=== PATIENT | female | born 1970 | race Caucasian/White ===

== ENCOUNTER 2018-12-04 09:53 | Outpatient (CLI) | payer BC | END 2018-12-04 09:54 | disposition home or self-care (01) | LOC: CTENTCT 09:53 | PROVIDERS: ATTEND Specialist | DX: J34.2 Deviated nasal septum (principal) | CPT/HCPCS: 70486 ==

== ENCOUNTER 2018-12-17 07:30 | Outpatient (CLI) | payer BC ==
--- NOTE | 2018-12-17 09:33 | CT ---
CT NECK SOFT TISSUES WITH CONTRAST: 12/17/2018 HISTORY: A 48-year-old female with ICD-10 R22.1, neck fullness. FINDINGS: There are multiple shotty cervical lymph nodes, less than 1 cm in size each, at multiple levels in th e neck, bilateral, mostly levels 1A, 1B and 2. The appearance is similar to that of previous CT of . Otherwise no solid or cystic mass is identified. The carotid, parotid, parapharyngeal, astrid vertebral, retropharyngeal, visceral, submandibular, building construction supervisor, sublingual and posterior cervical sp aces are unremarkable. The larynx is normal. The thyroid gland is somewhat small. No major interval c hange compared to 12/17/2013, overall. No destructive osseous lesion. Prominent degenerative changes at C1-C2. The bilateral tympanomastoid cavities and the bilateral maxillary sinuses are grossly clear . IMPRESSION: 1. Prominent degenerative changes at the atlanto-odontoid junction. 2. Scattered shotty cervical lymph nodes. 3. Otherwise negative. POS: CET
[2018-12-17] MEDS ORDERED: ISOVUE-370 76%-LOCM 1 ML ONE (09:59)
== END 2018-12-17 07:31 | disposition home or self-care (01) ==
LOC: BICCT 07:30
PROVIDERS: ATTEND Specialist
DX: R22.1 Localized swelling, mass and lump, neck (principal); M47.812 Spondylosis without myelopathy or radiculopathy, cervical region; I89.8 Other specified noninfective disorders of lymphatic vessels and lymph nodes
CPT/HCPCS: 70491; Q9966

== ENCOUNTER 2019-04-17 06:56 | Outpatient (CLI) | payer BC ==
--- NOTE | 2019-04-17 07:42 | ULT ---
GALLBLADDER ULTRASOUND: HISTORY: Right upper quadrant abdominal pain FINDINGS: The liver demonstrates increased echogenicity without focal mass or intrahepatic biliary ductal dilat ation. No gallstones, gallbladder wall thickening or pericholecystic fluid are seen. The right kidney and pancreas are normal. The common duct [id number] in diameter. No free fluid is seen in the De Leon's pouch. IMPRESSION: 1. Fatty liver 2. No evidence cholelithiasis.
== END 2019-04-17 06:57 | disposition home or self-care (01) ==
LOC: BICULT 06:56
PROVIDERS: ATTEND Family Medicine
DX: R10.11 Right upper quadrant pain (principal); K76.0 Fatty (change of) liver, not elsewhere classified
CPT/HCPCS: 76705

== ENCOUNTER 2020-01-21 12:25 | Outpatient (CLI) | payer BC ==
--- NOTE | 2020-01-21 13:05 | ULT ---
EXAM: US Soft Tissue Abd Wall DATE: 01/21/2020 12:00 AM INDICATION: Multiple palpable areas near the sternum and bilateral rib cage concern for possible lym phadenopathy COMPARISON: None. FINDING: Multiple grayscale sonographic images were obtained of the palpable regions of interest brent ng the anterior aspect of the rib cage. No suspicious sonographic abnormality is demonstrated. IMPRESSION:No suspicious sonographic abnormalities seen within the regions of palpable interest of th e anterior chest wall.
== END 2020-01-21 12:26 | disposition home or self-care (01) ==
LOC: BICULT 12:25
PROVIDERS: ATTEND Family Medicine
DX: R59.1 Generalized enlarged lymph nodes (principal)
CPT/HCPCS: 76705

== ENCOUNTER 2022-08-25 08:18 | Outpatient (CLI) | payer BC | END 2022-08-25 08:19 | disposition home or self-care (01) | LOC: BICCT 08:18 | PROVIDERS: ATTEND Family Medicine | DX: R59.0 Localized enlarged lymph nodes (principal) | CPT/HCPCS: 71260; 82565 ==

== ENCOUNTER 2022-11-16 08:58 | Outpatient (CLI) | payer BC ==
[2022-11-16 10:44] LABS: Hematocrit 44.6 % (34.9-44.5)
[2022-11-16 11:01] LABS: BHCG - Serum Negative (NEGATIVE); Pregs Control Background? CLEAR/WHITE (CLR/WHITE); Pregs Control Bar Appear? YES (CONTROL BAR)
[2022-11-16 11:07] LABS: Anion Gap 16 mmol/L (10-20); BUN (Urea Nitrogen) 13 mg/dL (9.8-20.1); Calc. Creatinine Clearance 0 mL/min (70-130); Calcium 9.5 mg/dL (7.8-10.44); Carbon Dioxide 24 mmol/L (22-29); Chloride 102 mmol/L (98-107); Estimated GFR 71; Glucose 151 mg/dL (70-105); Potassium 4.8 mmol/L (3.5-5.1); Sodium 137 mmol/L (136-145)
== END 2022-11-16 08:59 | disposition home or self-care (01) ==
LOC: LABBT 08:58
PROVIDERS: ATTEND Student in an Organized Health Care Education/Training Program
DX: Z01.818 Encounter for other preprocedural examination (principal); J34.2 Deviated nasal septum; J34.3 Hypertrophy of nasal turbinates; R09.81 Nasal congestion; R22.1 Localized swelling, mass and lump, neck
CPT/HCPCS: 80048; 84703; 85014; 93005; 93010

== ENCOUNTER 2022-11-21 07:12 | Day surgery (SDC) | payer BC ==
[2022-11-21] MEDS ORDERED: Oxymetazoline HCl 0.05% (30 ML BOT) ONE ×2 (08:26→08:42)
[2022-11-21] MEDS ORDERED: EPINEPHrine 1 MG/ML AMP ONE (08:42)
[2022-11-21] MEDS ORDERED: Lidocaine 1% (PF) 30 ML VIAL ONE (08:42)
[2022-11-21] MEDS ORDERED: Bacitracin Zinc Ointment 30 gm TUBE ONE (08:42)
[2022-11-21] MEDS ORDERED: fentaNYL 50 mcg/mL 1 mL Vial ONE ×2 (08:47→11:21)
[2022-11-21] MEDS ORDERED: SUGAMMADEX SODIUM 200 MG/2 ML VIAL ONE (08:47)
[2022-11-21] MEDS ORDERED: Dexamethasone 20 MG/5 ML VIAL ONE (09:11)
[2022-11-21] MEDS ORDERED: Ondansetron PF 4 MG/2 ML Vial ONE (09:11)
[2022-11-21] MEDS ORDERED: PROPOFOL 200 MG/20 ML VIAL ONE (09:11)
[2022-11-21] MEDS ORDERED: Rocuronium Bromide 10 MG/ML (10ML VIAL) ONE (09:11)
[2022-11-21] MEDS ORDERED: Lidocaine 1% PF 5 ML VIAL ONE (09:11)
[2022-11-21] MEDS ORDERED: hydrALAZINE 20 MG/ML VIAL ONE (11:25)
[2022-11-21] MEDS ORDERED: Promethazine HCl 25 MG/ML VIAL ONE (12:05)
[2022-11-21] MEDS ORDERED: Morphine 2 MG/ML VIAL ONE (12:45)
== END 2022-11-21 13:28 | disposition home or self-care (01) ==
LOC: SDC 07:12
PROVIDERS: ATTEND Student in an Organized Health Care Education/Training Program
PROC: 09BM0ZZ Excision of Nasal Septum, Open Approach (ICD-10-PCS; principal; 2022-11-21)
PROC: 09BL0ZZ Excision of Nasal Turbinate, Open Approach (ICD-10-PCS; principal; 2022-11-21)
DX: J34.2 Deviated nasal septum (principal); J34.3 Hypertrophy of nasal turbinates; J34.89 Other specified disorders of nose and nasal sinuses; R22.1 Localized swelling, mass and lump, neck; I10 Essential (primary) hypertension; E03.9 Hypothyroidism, unspecified; E11.9 Type 2 diabetes mellitus without complications; Z79.890 Hormone replacement therapy; Z79.899 Other long term (current) drug therapy; Z79.84 Long term (current) use of oral hypoglycemic drugs
CPT/HCPCS: 36416; J0171; J0360; J1100; J2001; J2272; J2405; J2550; J2704; J3010